=== PATIENT | female | born 1980 | race Two or more races ===

== ENCOUNTER 2024-12-09 17:17 | Emergency (ER) | payer MEDICAID, SELFPAY ==
--- NOTE | 2024-12-09 18:28 | PC.NURSE ---
NO ANSWER AT ER LOBBY OR OUTSIDE ER.
--- NOTE | 2024-12-09 18:45 | PC.NURSE ---
NO ANSWER AT ER LOBBY OR OUTSIDE ER TO BE TRIAGE.
--- NOTE | 2024-12-09 20:47 | PC.NURSE ---
NO ANSWER AT ER LOBBY OR OUTSIDE ER TO BE TRIAGE.
== END 2024-12-09 20:48 | disposition left against medical advice (07) ==
PROVIDERS: Emergency Provider Emergency Medicine
DX: Z53.21 Procedure and treatment not carried out due to patient leaving prior to being seen by health care provider (principal)

== ENCOUNTER 2025-01-08 13:55 | Observation (INO) | payer MEDICAID, SELFPAY ==
[2025-01-08] VITALS (11 sets, daily range): BP systolic 115–137; BP diastolic 78–96; PULSE 72–106; RESP 10–20; TEMP 36.1–37.2; O2SAT 94–100; BMI 34.7; BMI 36.0
--- NOTE | 2025-01-08 14:06 | XR_ITS ---
Examination: CT abdomen and pelvis without contrast. Coronal 3-D reconstructions. Sagittal 2-D reconstructions. Date and time of exam:January 08, 2025 1700 hours Comparison July 23, 2023 INDICATIONS: Lower abdominal pain today, history hernia defect CTDI: vol (mGy): 1229 DLP: (mGycm): 789 Technique: Axial images of the abdomen have been obtained, 3 mm slice thickness Intravenous contrast material has not been administered. Low dose protocols were performed. One or more of the following dose reduction techniques were used; automated exposure control, adjustment of the mA and/or KV according to patient size, use of iterative reconstruction technique. Findings: No focal liver or splenic lesion No gallstones No pancreatic or adrenal mass Moderate renal parenchymal scar formation No renal or ureteral calculi 27 mm fat-containing umbilical hernia defect, the transverse dimension of the hernia sac 4.3 cm This hernia contains incarcerated fat, axial image 158 No bowel is present in this hernia defect No bowel obstruction No pelvic mass Contracted urinary bladder Left inguinal small fat-containing hernia IMPRESSION: Umbilical hernia which contains incarcerated fat as above
--- NOTE | 2025-01-08 14:07 | PD.EDRME ---
Rapid Medical Screening Exam RME Arrival date/time: 01/08/25 13:55 44-year-old female presents to the emergency department today for complaints of abdominal pain patient reports history of hernia reports she felt a popping sensation in her abdomen Chief Complaint: Abdominal Pain Vital signs: Vital Signs Temperature 98.8 F 01/08/25 14:04 Pulse Rate 106 H 01/08/25 14:04 Respiratory Rate 18 01/08/25 14:04 Blood Pressure 117/78 01/08/25 14:04 Pulse Oximetry (%) 95 01/08/25 14:04 Oxygen Delivery Method Room Air 01/08/25 14:04
[2025-01-08 14:25] LABS: Collection Type, Urine Clean Catch
[2025-01-08 14:30] LABS: HCG Qualitative,Urine Negative
[2025-01-08 14:30] LABS: Basophils % (Auto) 0 % (0-2.5); Eosinophils # (Auto) 0.1 Thou/mm3 (0.0-0.5); Eosinophils % (Auto) 1 % (0-10); Hematocrit 40.8 % (36.0-46.0); Hemoglobin 14.1 g/dL (12.0-16.0); Immature Granulocytes % (Auto) 1 % (0-0); Immature Granulocytes Auto 0.05 Thou/mm3 (0.00-0.00); Lymphocytes # (Auto) 2.7 Thou/mm3 (1.0-4.8); Lymphocytes % (Auto) 24 % (10-50); Mean Corpuscular HGB Conc 34.6 g/dl (31.0-37.0); Mean Corpuscular Volume 90 fL (80-100); Monocytes # (Auto) 0.8 Thou/mm3 (0.0-0.8); Monocytes % (Auto) 8 % (0-12); Neutrophils # (Auto) 7.4 Thou/mm3 (1.8-7.7); Neutrophils % (Auto) 66 % (37-80); Nucleated Red Blood Cell % 0 /100 WBC (0); Platelet Count 262 Thou/mm3 (140-440); RDW Standard Deviation 38.8 fL (36.4-46.3); Red Blood Count 4.55 Miln/mm3 (4.00-5.20); White Blood Count 11.1 Thou/mm3 (3.6-11.0)
[2025-01-08 14:34] LABS: Bilirubin,Urine Negative (Negative); Blood,Urine 2+ (Negative); Clarity,Urine Clear (Clear/Hazy); Color,Urine Yellow (Lt Yel-Yel); Culture Indicated,Urine Not Indicated; Glucose, Urine Negative (Negative); Ketones,Urine Negative (Negative); Leukocyte Esterase,Urine Negative (Negative); Nitrite,Urine Negative (Negative); PH,Urine 5.5 (5.0-7.0); Protein,Urine Trace (Neg - Trace); RBC,Urine 5 /hpf (0-3); Specific Gravity,Urine 1.034 (1.001-1.035); Squamous Epithelial Cell,Urine 4 /hpf (0-5); Urobilinogen,Urine Negative mg/dL (0.0-1.0); WBC,Urine 1 /hpf (0-5)
[2025-01-08 14:46] LABS: Alanine Aminotransferase 17 U/L (10-49); Albumin, Serum 4.4 gm/dL (3.5-5.0); Albumin/Globulin Ratio 1.6 (1.2-2.2); Alkaline Phosphatase 59 U/L (46-116); Anion Gap 10 (7-16); Aspartate Amino Transferase 11 U/L (0-34); BUN/Creatinine Ratio 18 Ratio (12-20); Bilirubin,Total 0.4 mg/dL (0.3-1.2); Blood Urea Nitrogen 14 mg/dL (9-23); Calcium 9.4 mg/dL (8.3-10.6); Calcium (Corrected) 9.4 mg/dL (8.5-10.1); Carbon Dioxide 27.4 mMol/L (20.0-31.0); Chloride 106 mMol/L (98-107); Creatinine (Component) 0.8 mg/dL (0.6-1.3); Estimated Creatinine Clearance 104.6 mL/min (>60); Globulin 2.7 gm/dL (2.3-3.5); Glucose 91 mg/dL (74-106); Lipase 42 U/L (12-53); Osmolality,Calculated 285 (275-295); Potassium 3.9 mMol/L (3.4-5.1); Sodium 143 mMol/L (136-145); Total Protein 7.1 gm/dL (5.7-8.2); eGFR > 60 See Note
--- NOTE | 2025-01-08 15:31 | EDNOTE_ITS ---
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 She reported the pain to be 10/10 in intensity, pulsatile in nature. Reported exacerbation with bending forward or any flexion or extension motion of her abdomen. She admitted nausea and vomiting but denied any headache, dizziness, chest pain, palpitation, SOB, any changes in bowel or bladder habit, or fever or chills. Related Data Home Medications ?Medication ?Instructions ?Recorded ?Confirmed No Known Home Medications 01/07/2112/20 Allergies Allergy/AdvReac Type Severity Reaction Status Date / Time ferrous fumarate Allergy Severe Rash Verified 12/09/24 17:20 folic acid Allergy Severe Rash Verified 12/09/24 17:20 vitamins with Allergy Severe Rash Verified 12/09/24 17:20 calcium no.78 Penicillins Allergy Intermediate Rash Verified 12/09/24 17:20 Review of Systems Review of Systems Systems Reviewed: All systems reviewed, normal except as documented ((Above)) ED Exam Narrative Physical exam: General: No acute distress, Alert and Oriented x 3 HEENT: Moist mucous membranes, oropharynx clear Neck: Supple, No masses, No JVD CVS: S1S2 Regular rate and rhythm, No murmurs, rubs or gallops Lungs: Clear to auscultation with no accessory use, no wheeze no rhonchi Abd: Soft, tenderness over umbilical region, +BS, no organomegaly Ext: No edema, warm and well perfused Skin: No rash Psych: Appropriate mood and affect Course Quality Measures none Orders Category Date Time Status Consult to General Surgery Stat Cons 01/08/25 18:[address] abdomen pelvis wo con Stat Exams 01/08/25 14:06 Completed CBC Stat Lab 01/08/25 14:10 Completed Comprehensive Metabolic Panel Stat Lab 01/08/25 14:10 Completed HCG Qualitative,Urine Stat Lab 01/08/25 14:18 Completed Lipase Stat Lab 01/08/25 14:10 Completed UA, C/S IF [Urinalysis, C/S if Indicated] Stat Lab 01/08/25 14:18 Completed Ketorolac Inj [Toradol Inj] Med 01/08/25 15:30 Discontinued 30 mg IM X1 ONE Vital Signs Vital signs: Vital Signs Temperature 98.8 F 01/08/25 14:04 Pulse Rate 106 H 01/08/25 14:04 Respiratory Rate 18 01/08/25 14:04 Blood Pressure 117/78 01/08/25 14:04 Pulse Oximetry (%) 95 01/08/25 14:04 Oxygen Delivery Method Room Air 01/08/25 14:04 Abdominal Pain MDM MDM Narrative MDM Narrative:: 44-year-old female with PMH significant for umbilical hernia presents to the emergency department for complaints of central abdominal pain, that started at her work and she felt a popping sensation. She reported the pain to be 10/10 in intensity, pulsatile in nature. Reported exacerbation with bending forward or any flexion or extension motion of her abdomen. She admitted nausea and vomiting but denied any headache, dizziness, chest pain, palpitation, SOB, any changes in bowel or bladder habit, or fever or chills. Her vitals were BP 117/78, HR 106, RR 18, temp 98.8 and saturating 95% on room a ir. White count 11.1, chem panel WNL, UA revealed 2+ blood, 5 RBC but negative for UTI. CT abd/pel Patient data External records reviewed:: [facility] previous records Clinical information provided by:: patient Social determinants that could affect healthcare access:: none Patient has the following chronic illnesses:: See avmarcos How is presenting disease/condition affected by chronic disease/condition?: caused by Evaluation data The following diagnostics were reviewed and interpreted by me:: lab results and radiology exam(s) Lab and/or radiology exams considered but not ordered:: None Interpretation Summary: See above Medications / Prescriptions Medications or Prescriptions considered but not ordered:: None Medication administrations:: Medication Administration History Discontinued Medications Ketorolac Tromethamine (Ketorolac Inj 60 Mg/2 Ml Vial) 30 mg IM X1 ONE Stop: 01/08/25 15:31 Last Admin: 01/08/25 15:52 Dose: 30 mg Documented By: DO See above Consultations Consultation(s) initiated? (list below): Yes Consultation #1 (Physician, Specialty, Details): Dr. Dunn, General surgeon Time: 18:25 Diagnosis Differential diagnosis abdominal pain: constipation, diverticulitis, small bowel obstruction and other (Umbilical hernia) Most likely diagnosis given after review of the tests above:: Ventral hernia Admission Indicated Admission indicated?: indicated Admission Request Was there a request for admission?: Yes Admission Attestation Admission request attestation: Discussed case with general surgeon Dr. Dunn regarding admission. Discussed patients ED course, exam findings, labs, and radiology results. He agrees to accept the patient for surgery. Disposition Plan Disposition Plan: other (specify) Discharge Plan Plan Patient Disposition: Admit Acute Care w/in Hospital Prescriptions/Referrals Prescriptions/Med Rec: No Action No Known Home Medications Referrals: Roldan Sun MD [Primary Care Provider] - In 1 week Problem List Clinical Impression: Ventral hernia Patient/Caregiver Discharge Instructions Print Language: Portuguese Stand Alone Forms: [facility] Award Info., Patient Portal Info Letter
[2025-01-08] MEDS: KETOROLAC INJ 60 MG/2 ML VIAL 30 MG IM (15:52)
--- NOTE | 2025-01-08 16:09 | PC.NURSE ---
PATIENT DID NOT ANSWER X 3 @ [phone].
--- NOTE | 2025-01-08 18:11 | PD.EDADDENDU ---
Emergency Room Addendum Addendum Narrative: I briefly saw this patient with the resident Dr. Flores she has a very small umbilical hernia that is simply an easily reducible CT report shows its got fat or omentum. There is no bowel obstruction peritoneal signs and is not appear ill in any way. Plan this time was to consult Dr. Dunn and get an outpatient follow-up. Final care of this patient will go to Dr. Barnard who
--- NOTE | 2025-01-08 18:34 | PD.EDADDENDU ---
Emergency Room Addendum <Cookie Rojas - Last Filed: 01/08/25 19:08> Addendum Narrative: 1800: Care assumed from Dr. Flores (emergency resident physician). Past medical, surgical, social and family history reviewed. Vitals and home medications reviewed. Results and treatment plan discussed. I will assume the care of the patient at this time and will follow the patient, pending assessment by Dr. Dunn. 1904: Patient accepted by Dr. Dunn for admittance to general surgery. DISPOSITION: Emergency Department nursing documentation was reviewed including triage complaint, associated symptoms, administration of medications, response to therapy and vital signs. Given the history, physical exam, and review of laboratory and imaging studies the patient is determined to be unsafe for discharge and is being moved into the hospital for further diagnostic tests, treatments, stabilization, and monitored response to therapy. I communicated the history, physical exam, pertinent laboratory and imaging studies to the inpatient physician. The inpatient physician has access to electronic copies of all emergency department laboratory testing and imaging studies as well as medications ordered and administered. <Norma Barnard MD - Last Filed: 01/08/25 23:53> Addendum Narrative: 1800: Care assumed from Dr. Flores (emergency resident physician) and primarily seen by the attending Dr. CUETO was the primary ED attending on this patient.. Past medical, surgical, social and family history reviewed. Vitals and home medications reviewed. Results and treatment plan discussed. I will assume the care of the patient at this time and will follow the patient, pending assessment by Dr. Dunn. 1904: Patient accepted by Dr. Dunn for admittance to general surgery. DISPOSITION: Emergency Department nursing documentation was reviewed including triage complaint, associated symptoms, administration of medications, response to therapy and vital signs. Given the history, physical exam, and review of laboratory and imaging studies the patient is determined to be unsafe for discharge and is being moved into the hospital for further diagnostic tests, treatments, stabilization, and monitored response to therapy. I communicated the history, physical exam, pertinent laboratory and imaging studies to the inpatient physician. The inpatient physician has access to electronic copies of all emergency department laboratory testing and imaging studies as well as medications ordered and administered.
--- NOTE | 2025-01-08 18:48 | PC.NURSE ---
pt reports that her pain is slowly returning after provider did his assessment and pressed on her abdomen, she has been updated on her poc and in agreement.
--- NOTE | 2025-01-08 19:02 | PC.NURSE ---
Dr. Dunn at bedside speaking to patient.
--- NOTE | 2025-01-08 19:10 | PD.SURHP ---
HPI Date of Admission 01/08/2025 Chief Complaint Chief Complaint: Patient is admitted with complaints of painful abdominal wall hernia above the umbilicus HPI History of present illness revealed the patient has had this hernia for a period of about a year or so but in the past week she has been experiencing pain and today the pain increased and therefore she came to the emergency room. She also had 2 episodes of vomiting. Patient came to the emergency room 1 year ago and it was reduced and she was discharged. She has done reasonably well until the past week when this problem occurred again. Patient denies any other major medical problems. Past Medical History Past Medical History NEUROLOGIC: Negative Neurological Disorders CARDIAC: Positive Hypertension; Negative Cardiac Disorders or Congestive Heart Failure RESPIRATORY: Negative Chronic Obstructive Pulmonary Disease (COPD) or Asthma GASTROINTESTINAL: Negative Gastrointestinal Disorders GENITOURINARY: Negative Genitourinary Disorders or Renal Disease MUSCULOSKELETAL: Negative Musculoskeletal Disorders ENDOCRINE: Negative Endocrine Disorders, Diabetes Mellitus Type 1 or Diabetes Mellitus Type 2 HEMATOLOGIC: Negative Blood Disorders or Sickle Cell Disease Family History FAMILY HISTORY: Positive Family Cardiac Disorders Social History SMOKING STATUS: Never smoker Meds Home Medications and Allergies Home Medications ?Medication ?Instructions ?Recorded ?Confirmed ?Type No Known Home Medications 01/07/21 01/07/21 History Allergies Allergy/AdvReac Type Severity Reaction Status Date / Time ferrous fumarate Allergy Severe Rash Verified 12/09/24 17:20 folic acid Allergy Severe Rash Verified 12/09/24 17:20 vitamins with Allergy Severe Rash Verified 12/09/24 17:20 calcium no.78 Penicillins Allergy Intermediate Rash Verified 12/09/24 17:20 Exam Vital Signs Temp Pulse Resp BP Pulse Ox O2 Del Method 98.2 F 72 18 132/96 H 96 Room Air 01/08/25 18:43 01/08/25 18:43 01/08/25 18:43 01/08/25 18:43 01/08/25 18:43 01/08/25 18:43 Narrative Exam Physical examination revealed a pleasant 44-year-old female who appeared to be in his stated age. She is slightly obese but her vital signs are normal Constitutional Constitutional: moderate distress Routine Abdominal Exam Comments: Examination of the abdomen showed a tender mass just above the umbilicus which is not reducible. Patient also has an umbilical hernia which is a small defect below that which is reducible. Bowel sounds were normoactive Routine Rectal Exam Comments: Deferred Routine Exam Comments: Deferred Routine Extremities Exam Comments: Within normal limits Routine Back/Spine/Pelvis Exam Comments: Within normal limits Results Results: Laboratory Laboratory Narrative: Patient's laboratory workup showed mild leukocytosis with 11,000 WBC and shift to left. Electrolytes are within normal limits and the test is negative Results: Imaging Imaging narrative: Patient had a CT scan of the abdomen which showed incarcerated umbilical hernia. But the defect appears to be located above the umbilicus as well in addition to an umbilical hernia. Assessment & Plan Additional Assessment Additional comments: Impression: Incarcerated ventral hernia defect measuring less than 3 cm Mild obesity Plan Plan: I have advised the patient to undergo repair of this hernia because it is difficult to reduce and patient has severe pain and is not able to tolerate the pain despite Toradol. She also has had a vomiting because of the pain. There is no evidence of small bowel involved in the hernial sac. But because of the ongoing pain patient is scheduled for surgery as an emergency. The procedure was explained to the patient including potential risks of the leg wound infection hematoma possibility for recurrence etc. She is agreeable. Quality Measures Quality Measures none
[2025-01-08] MEDS: SODIUM CHLORIDE 0.9% 1000 ML 1,000 ML 500 ML IV (19:31)
--- NOTE | 2025-01-08 19:48 | PC.NURSE ---
Report given to Logan Marie from Surgery.
--- NOTE | 2025-01-08 21:42 | SUR.PHASEI ---
2132 To PACU eyes closed resting comfortably, no complaints no s/s of distress note continue to monitor pt vital signs and status. 2139 Able to lift head off of pillow, following simple commands continue to monitor pt vital signs and status.
--- NOTE | 2025-01-08 22:01 | PD.SUROPNT ---
Date of Procedure 01/08/25 Pre Op Diagnosis Incarcerated ventral hernia Post Op Diagnosis Incarcerated ventral hernia Umbilical hernia Procedure Repair of the incarcerated ventral hernia with primary closure and repair of the umbilical hernia with 1.7 inch Ventralex mesh Findings Patient was found to have a large tender mass above the umbilicus and preoperatively it was diagnosed as incarcerated ventral hernia. However during surgery I found out that the patient had 2 defects 1 causing ventral hernia and the other 1 the umbilical hernia. Procedure Description after the patient was brought to the operating room endotracheal anesthesia was given. Abdomen was prepped with ChloraPrep solution draped in a sterile manner. Timeout was performed. Patient received 2 g of Ancef because of the incarceration. I made a curved incision above the umbilicus and dissected out the subcutaneous tissue. Patient had morbid obesity and therefore the hernia was very deep. I realized that the hernia was a size of a golf ball and it could not be reduced. I dissected it all around and reach the fascia. Then a clamp at the base of the incarcerated omentum down with Zee clamp and suture-ligated with 2-0 chromic. I did it all around and then reduced the remaining omentum I found out that the patient had a slitlike opening measuring 1.5 cm. This was the ventral hernia that caused incarceration. Then I found out another hernia which manifested as an umbilical hernia about 2 cm below the ventral hernia defect. This was also dissected out and the fatty tissue was excised and the defect was outlined and was found to have 1.5 cm in diameter and easily admitted my finger. The ventral hernia defect was closed primarily with interrupted 2-0 Prolene about 4 of the. For the umbilical hernia defect I used 1.7 inch Ventralex mesh and attach the Marlex straps to the edges of the fascia. I also covered the overhanging edges of the defect with interrupted 2-0 Prolene. The subcutaneous tissue was closed in layers using 3-0 plain and 3-0 chromic and subcuticular approximation was performed for the skin. Dressing was applied with Adaptic and 4 x 4 gauze and patient tolerated the procedure well and left operating room in stable condition Anesthesia GETA Implants 1.7 inch Ventralex mesh Pathology / specimen None Estimated Blood Loss 50 Surgeon Edwina Raphael MD Surgical Staff Operation Date: 01/08/25 20:00 Case Staff Anesthesiologist: Oscar Rayo RNclinical radiologist: Blaire Nettles
--- NOTE | 2025-01-08 22:06 | SUR.PHASEI ---
2140 Able to lift head off of pillow, following simple commands continue to monitor pt vital signs and status.
--- NOTE | 2025-01-08 22:39 | SUR.PHASEI ---
2215 Transfer to room 369 in stable condition awake and alert, no complaints no s/s of distress noted no change to mid abdomen dressing.
[2025-01-08] MEDS: SODIUM CHLORIDE 0.9% 1000 ML 1,000 ML 125 ML IV (22:56)
[2025-01-09] VITALS: BP 110/84; PULSE 86; RESP 18; TEMP 36.3; O2SAT 96
[2025-01-09 01:56] VITALS: PULSE 74; RESP 18; RESP 85
[2025-01-09 04:00] VITALS: BP 105/67; PULSE 75; RESP 18; TEMP 36.2; O2SAT 98
[2025-01-09 05:41] LABS: Basophils % (Auto) 0 % (0-2.5); Eosinophils % (Auto) 0 % (0-10); Hematocrit 37.2 % (36.0-46.0); Hemoglobin 13.1 g/dL (12.0-16.0); Immature Granulocytes % (Auto) 0 % (0-0); Immature Granulocytes Auto 0.04 Thou/mm3 (0.00-0.00); Lymphocytes % (Auto) 8 % (10-50); Mean Corpuscular HGB Conc 35.2 g/dl (31.0-37.0); Mean Corpuscular Volume 88 fL (80-100); Monocytes # (Auto) 0.2 Thou/mm3 (0.0-0.8); Monocytes % (Auto) 2 % (0-12); Neutrophils # (Auto) 10.6 Thou/mm3 (1.8-7.7); Neutrophils % (Auto) 90 % (37-80); Nucleated Red Blood Cell % 0 /100 WBC (0); Platelet Count 217 Thou/mm3 (140-440); RDW Standard Deviation 38.3 fL (36.4-46.3); Red Blood Count 4.23 Miln/mm3 (4.00-5.20); White Blood Count 11.9 Thou/mm3 (3.6-11.0)
[2025-01-09] MEDS: SODIUM CHLORIDE 0.9% 1000 ML 1,000 ML 125 ML IV (06:50)
[2025-01-09 07:22] VITALS: PULSE 66; RESP 18; O2SAT 97
[2025-01-09 08:00] VITALS: BP 107/78; PULSE 78; RESP 17; TEMP 36.6; O2SAT 97
--- NOTE | 2025-01-09 10:48 | PD.SURPROG ---
Documentation for date of: 01/09/25 Subjective Subjective Brief History: History of present illness revealed the patient has had this hernia for a period of about a year or so but in the past week she has been experiencing pain and today the pain increased and therefore she came to the emergency room. She also had 2 episodes of vomiting. Patient came to the emergency room 1 year ago and it was reduced and she was discharged. She has done reasonably well until the past week when this problem occurred again. Patient denies any other major medical problems. Narrative: The patient is feeling much better today. Her abdominal pain has decreased considerably after the surgery. She is passing flatus Exam Vital Signs Temp Pulse Resp BP Pulse Ox O2 Del Method O2 Flow Rate 97.9 F 78 17 107/78 97 Room Air 2 01/09/25 08:00 01/09/25 08:00 01/09/25 08:00 01/09/25 08:00 01/09/25 08:00 01/09/25 08:00 01/09/25 07:22 Her vital signs are normal Routine Abdominal Exam Comments: Abdominal incision looks satisfactory Results Results: Laboratory Laboratory Narrative: WBC is slightly elevated Assessment & Plan Assessment Additional comments: Impression satisfactory postoperative state after repair of the incarcerated ventral hernia on the umbilical hernia Plan Plan: We shall discharge the patient today on follow-up next week in my office Procedures Procedures Repair of the incarcerated ventral hernia with primary closure and repair of the umbilical hernia with 1.7 inch Ventralex mesh
== END 2025-01-09 11:47 | disposition home or self-care (01) ==
LOC: SERX 19:04 → SERHOLD 19:45 → S3SX 01-09 09:15 → SERHOLD 01-09 09:16
PROVIDERS: Nurse Practitioner Primary Care; Admitting Provider Surgery; Emergency Provider Emergency Medicine; PCP Family Medicine; Visit Provider Surgery
PROC: (CPT 49594; principal; 2025-01-08 20:00)
DX: K43.6 Other and unspecified ventral hernia with obstruction, without gangrene (principal); K42.9 Umbilical hernia without obstruction or gangrene; E66.9 Obesity, unspecified; I10 Essential (primary) hypertension; Z82.49 Family history of ischemic heart disease and other diseases of the circulatory system
CPT/HCPCS: 49594; 36415; 74176; 80053; 81001; 81025; 83690; 85025; 96360; 96361; 96372; 99285; A4217; A4649; C1781; G0378; J0131; J0690; J1100; J1885; J2704; J2765; J3010; J3490; J7030; A9270